=== PATIENT | male | born 2000 | race Caucasian/White ===

== ENCOUNTER → 2020-07-15 10:38 | Outpatient (BNVA) | payer OTHER, SELFPAY | PROVIDERS: Family Provider Family Medicine; PCP Family Medicine; Visit Provider Nurse Practitioner Family | DX: Z20.828 Contact with and (suspected) exposure to other viral communicable diseases (principal); J06.9 Acute upper respiratory infection, unspecified; R43.0 Anosmia | CPT/HCPCS: 87635 ==

== ENCOUNTER 2023-11-05 12:17 | Outpatient (CLI) | payer OTHER, SELFPAY ==
--- NOTE | 2023-11-05 | ECG_ITS ---
[facility] Test Date: 2023-11-05 Pat Name: Stewart Bustos Department: Room: Gender: Male Technical Training Instructor: : 2000 Requested By: Marycruz Cantu Order Number: [id number] Mccall MD: Ashutosh Mcdermott M.D. Interpretive Statements NAME OF STUDY: TREADMILL STRESS TEST INDICATION: [Pre Operative Clearance; Bradycardia] EXERCISE DATA: The patient was exercised by Steve protocol. Baseline heart rate was 68 beats per minute. Baseline blood pressure was 115/85 millimeters of mercury. Maximal predicted heart rate was 196 beats per minute. Maximum heart rate achieved was 188, which was 95% of the maximum predicted heart rate. Maximum blood pressure was 152/82 millimeters of mercury. Total exercise time was 13 minutes 5 seconds. Maximum METs achieved was 17.2. The reason for ending the test was completion of protocol. The patient complained of shortness of breath during the stress test, which then resolved at the end of the test. ELECTROCARDIOGRAM: BASELINE: Showed sinus rhythm, normal axis, no significant ST-T changes at the baseline noted. [] EXERCISE: At the peak exercise level, [] No significant ST-T changes suggestive of ischemia noted. [] RECOVERY: During the recovery period, heart rate dropped appropriately. No significant ST-T changes in the recovery suggestive of ischemia noted. [] CONCLUSION: 1. Exercise capacity is excellent. 2. Heart rate response was appropriate 3. Blood pressure response was appropriate 4. Symptoms not suggestive of ischemia. 5. Stress test does not show ischemia. Electronically Signed On 11-22-2023 6:44:41 CDT by Ashutosh Mcdermott M.D. [id number]
[2023-11-05 12:32] VITALS: BMI 17.0
[2023-11-05 13:36] VITALS: BP 112/64; PULSE 72
== END 2023-11-05 12:18 | disposition home or self-care (01) ==
PROVIDERS: PCP Family Medicine; Visit Provider Nurse Practitioner Family
DX: R00.1 Bradycardia, unspecified (principal)
CPT/HCPCS: 93017